=== PATIENT | female | born 1960 | race Caucasian/White ===

== ENCOUNTER 2020-02-25 11:21 | Emergency (ER) | payer OTHER, BC ==
[2020-02-25 11:34] VITALS: BP 144/81; PULSE 85
--- NOTE | 2020-02-25 11:35 | EDM.PDOC ---
ED HPI GENERAL MEDICAL PROBLEM - General Chief Complaint: Upper Extremity Injury/Pain Stated Complaint: right hand laceration Time Seen by Provider: 02/25/20 11:21 Source of Information: Reports: Patient History Limitations: Reports: No Limitations - History of Present Illness INITIAL COMMENTS - FREE TEXT/NARRATIVE: 59 WF presents to ER complaining of right hand laceration after breaking a glass while washing dishes. Pt was sent from [facility] for further evaluation and treatment. Pt denies any functional deficit to hand or fingers. Bleeding is controlled. Laceration is below 5th MCP and approximately 5cm in length. Pt denies any other injury. Pain well controlled. Onset: Today Onset Date: 02/25/20 Location: Reports: Upper Extremity, Right Quality: Reports: Ache Severity: Mild Improves with: Reports: None Worsens with: Reports: None Associated Symptoms: Reports: No Other Symptoms Right Finger-Little Pain Score (Numeric/FACES): 8 - Related Data Allergies Allergy/AdvReac Type Severity Reaction Status Date / Time adhesive Allergy Other Verified 02/25/20 11:22 Home Meds: Home Meds Cyclobenzaprine [Flexeril] 5 mg PO TID PRN 07/30/17 [History] Diclofenac Sodium [Voltaren] 75 mg PO BIDMEALS PRN 07/30/17 [History] Non-Formulary Medication [NF Drug] 1 applic TOP BID PRN 07/30/17 [History] 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: Oncologic (Cancer) History: Reports: Uterine Social & Family History - Caffeine Use Caffeine Use: Reports: Coffee, Soda Review of Systems - Review of Systems Review Of Systems: See Below Constitutional: Reports: No Symptoms Eyes: Reports: No Symptoms Ears: Reports: No Symptoms Nose: Reports: No Symptoms Mouth/Throat: Reports: No Symptoms Respiratory: Reports: No Symptoms Cardiovascular: Reports: No Symptoms GI/Abdominal: Reports: No Symptoms Genitourinary: Reports: No Symptoms Musculoskeletal: Reports: No Symptoms Skin: Reports: Wound (5cm laceration to right hand) Neurological: Reports: No Symptoms Psychiatric: Reports: No Symptoms ED EXAM, GENERAL - Physical Exam Exam: See Below Exam Limited By: No Limitations General Appearance: Alert, WD/WN, No Apparent Distress Eye Exam: Bilateral Eye: PERRL Head: Atraumatic, Normocephalic Neck: Normal Inspection, Supple, Non-Tender, Full Range of Motion Respiratory/Chest: No Respiratory Distress, Lungs Clear, Normal Breath Sounds, No Accessory Muscle Use, Chest Non-Tender Cardiovascular: Normal Peripheral Pulses, Regular Rate, Rhythm, No Edema, No Gallop, No JVD, No Murmur, No Rub GI/Abdominal: Normal Bowel Sounds, Soft, Non-Tender, No Organomegaly, No Distention, No Abnormal Bruit, No Mass Back Exam: Normal Inspection, Full Range of Motion, NT Extremities: Normal Range of Motion, No Pedal Edema, Normal Capillary Refill Neurological: Alert, Oriented, CN II-XII Intact, Normal Cognition, Normal Gait, Normal Reflexes, No Motor/Sensory Deficits Psychiatric: Normal Affect, Normal Mood Skin Exam: Warm, Dry, Normal Color, No Rash, Wound/Incision (5cm laceration to right hand) Lymphatic: No Adenopathy ED TRAUMA EXTREMITY PROCEDURES - Laceration/Wound Repair Right Hand Lac/Wound Length In cm: 5 Appearance: Superficial Distal NVT: Neuro & Vascular Intact Local Anesthesia - Lidocaine (Xylocaine): 1% Plain Local Anesthetic Volume: 5cc Skin Prep: Chlorhexidine (Hibiciens), Saline Exploration/Debridement/Repair: Wound Explored Closed With: Sutures Suture Size: 5-0 # of Sutures: 5 Suture Type: Nylon, Interrupted, Simple Sterile Dressing Applied: Nurse Tetanus Status Addressed: Yes Complications: No Course - Vital Signs Last Recorded V/S: Last Vital Signs Temp 36.2 C 02/25/20 11:23 Pulse 85 02/25/20 11:23 Resp 20 02/25/20 11:23 BP 144/81 H 02/25/20 11:23 Pulse Ox 94 L 02/25/20 11:23 - Orders/Labs/Meds Meds: Medications Discontinued Medications Generic Name Dose Route Start Last Admin Trade Name Juan Diego PRN Reason Stop Dose Admin Lidocaine HCl Confirm 02/25/20 11:31 Xylocaine 1% Administered 02/25/20 11:32 Dose 20 ml .ROUTE .STK-MED ONE Departure - Departure Time of Disposition: 12:16 Disposition: Home, Self-Care 01 Condition: Good Clinical Impression: Laceration of right hand Qualifiers: Encounter type: initial encounter Foreign body presence: without foreign body Qualified Code(s): S61.411A - Laceration without foreign body of right hand, initial encounter - Discharge Information Instructions: Laceration Care, Adult, [id number] Referrals: Jose G Dias, BRANCH SERVICE REPRESENTATIVE [Primary Care Provider] - Forms: ED Department Discharge Additional Instructions: 1. discharge home 2. wound care instructions given 3. keep clean/dry 4. suture removal 7-10 days 5. return to ER for signs of infection- redness, swelling, discharge from wound , worsening pain 48 hours after repair 6. follow up at clinic for further evaluation and treatment as needed Sepsis Event Note - Evaluation Sepsis Screening Result: No Definite Risk - Focused Exam Vital Signs: Vital Signs Temp Pulse Resp BP Pulse Ox 02/25/20 11:23 36.2 C 85 20 144/81 H 94 L Date Exam was Performed: 02/25/20 Time Exam was Performed: 12:16 - Assessment/Plan Assessment:: 1. 5cm laceration to right hand Plan: 1. discharge home 2. wound care instructions given 3. keep clean/dry 4. suture removal 7-10 days 5. return to ER for signs of infection- redness, swelling, discharge from wound , worsening pain 48 hours after repair 6. follow up at clinic for further evaluation and treatment as needed
[2020-02-25] MEDS: Lidocaine 1% 20 ML MDV ONE (12:00)
== END 2020-02-25 12:18 | disposition home or self-care (01) ==
LOC: KA.ED 11:21
DX: S61.411A Laceration without foreign body of right hand, initial encounter (principal); Z91.048 Other nonmedicinal substance allergy status; W25.XXXA Contact with sharp glass, initial encounter; Y93.G1 Activity, food preparation and clean up
CPT/HCPCS: 12002; 99282-25; J2001

== ENCOUNTER 2021-10-27 17:53 | Emergency (ER) | payer OTHER, BC ==
[2021-10-27 18:09] VITALS: BP 150/84; PULSE 89
--- NOTE | 2021-10-27 19:04 | CR ---
[id number] RAD/RAD Forearm Right 2V EXAM: 2 VIEWS RIGHT FOREARM. INDICATION: FALL, HEMATOMA RT FOREARM COMPARISON: None. DISCUSSION: No fracture, dislocation or other osseous abnormality. Soft tissue edema. IMPRESSION: 1. No acute osseous abnormalities. Tk Mendoza DO 10/27/21 0573 Thank you for allowing us to participate in the care of your patient.
--- NOTE | 2021-10-27 19:05 | CR ---
[id number] RAD/RAD Elbow Right 3V Min EXAM: 3 VIEWS RIGHT ELBOW. INDICATION: FALL, EDEMA COMPARISON: None. DISCUSSION: No fracture, dislocation or other acute osseous abnormality. Mild degenerative changes of the right elbow. IMPRESSION: 1. No acute osseous abnormalities. Chronic changes as above. Tk Mendoza DO 10/27/21 [id number] Thank you for allowing us to participate in the care of your patient.
--- NOTE | 2021-10-27 19:56 | EDM.PDOC ---
ED HPI GENERAL MEDICAL PROBLEM - General Chief Complaint: General Stated Complaint: RIGHT ARM INJURY,POSSIBLE LEG Time Seen by Provider: 10/27/21 17:55 Source of Information: Reports: Patient History Limitations: Reports: No Limitations - History of Present Illness INITIAL COMMENTS - FREE TEXT/NARRATIVE: 60-year-old female presents to the emergency room with swelling hematoma over her right elbow and forearm and abrasion to her left lower leg. Patient states yesterday she while helping her unload firewood, she was getting out of the pickup truck and it was part close to their fire pit and she tripped over it in the dark causing abrasion to her left rajan and right elbow. Upon waking up today she noticed swelling over the right elbow and achiness. She denies any drainage. She reports that she has been drinking alcohol today to supplement the discomfort. She now presents to the emergency room with her friend for evaluation. She is alert and oriented there is a strong smell of alcohol in the exam room. She is cooperative. She is nontoxic appearing and appropriate behavior. 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 ED EXAM, GENERAL - Physical Exam Exam: See Below Exam Limited By: No Limitations General Appearance: Alert, WD/WN, No Apparent Distress Nose: Normal Inspection Throat/Mouth: Normal Voice, No Airway Compromise Head: Atraumatic Neck: Normal Inspection Respiratory/Chest: No Respiratory Distress Extremities: Joint Swelling (Right forearm), Arm Pain, Other (Right upper extremity shows large hematoma with an abrasion over the area. There is no drainage. This is tender to touch. No redness. She has full finger wrist forearm and elbow range of motion. She has normal shoulder range of motion. Sh e has no tenderness over the radial head or olecranon. ) Neurological: Alert, Oriented, No Motor/Sensory Deficits Psychiatric: Normal Affect, Normal Mood Skin Exam: Warm, Wound/Incision (Bruising over the left rajan and right elbow), Other (Large hematoma over the right elbow). No: Erythema Course - Vital Signs Last Recorded V/S: Last Vital Signs Temp 97.9 F 10/27/21 18:03 Pulse 89 10/27/21 18:03 Resp 18 10/27/21 18:03 BP 150/84 H 10/27/21 18:03 Pulse Ox 97 10/27/21 18:03 - Radiology Interpretation Free Text/Narrative:: X-rays 3 views right elbow Indication: Fall, edema Comparison: None Discussion: No fracture, dislocation or other acute osseous abnormality. Mild degenerative changes right elbow Impression: No acute osseous abnormality. Chronic changes as above. X-rays 2 views right forearm Indication: Fall, hematoma right forearm Comparison: None Discussion: No fracture, dislocation or other osseous abnormality. Soft tissue edema. - Re-Assessments/Exams Free Text/Narrative Re-Assessment/Exam: 10/27/21 20:02 Discussed x-rays with the patient. No fractures are identified. Triple antibiotic and Telfa gauze including an Russel wrapped at the forearm extending up to the lower arm. I have discussed with the patient she needs to have close observation and watching for signs of infection for the hematoma of the right forearm. We discussed possible need for I&D if this becomes infected. I would recommend continuation of compression and icing and anti-inflammatories as needed. Departure - Departure Time of Disposition: 19:15 Disposition: Home, Self-Care 01 Condition: Good Clinical Impression: Abrasion, left lower leg, initial encounter Traumatic hematoma of right forearm Qualifiers: Encounter type: initial encounter Qualified Code(s): S50.11XA - Contusion of right forearm, initial encounter - Discharge Information Instructions: Elbow Contusion, [id number], Hematoma, [id number] Referrals: Deja Abbasi PUZZLE ASSEMBLER [Primary Care Provider] - Forms: ED Department Discharge Care Plan Goals: 1. Compression with an Russel right forearm and elbow. 2. Patient will need to pay close attention to the swelling and any development of warmth, redness or increased pain to the right elbow. 3. X-rays are negative for fracture of the elbow and forearm. 4. You have a large soft tissue hematoma. Compression, icing and observation are the treatment at this time. We discussed the possibility of this developing into an infection which then would need to be formally I&D. 5. Patient will follow up with her primary care if any of the symptoms or concerns for infection occur. 6. He may take Tylenol or ibuprofen for any pain or discomfort as well as continue with icing. Sepsis Event Note (ED) - Evaluation Sepsis Screening Result: No Definite Risk - Focused Exam Vital Signs: Vital Signs Temp Pulse Resp BP Pulse Ox 10/27/21 18:03 97.9 F 89 18 150/84 H 97 - Assessment/Plan Assessment:: Traumatic hematoma right forearm Left lower leg abrasion Plan: 1. Compression with an Russel right forearm and elbow. 2. Patient will need to pay close attention to the swelling and any development of warmth, redness or increased pain to the right elbow/forearm. 3. X-rays are negative for fracture of the elbow and forearm. 4. You have a large soft tissue hematoma. Compression, icing and observation are the treatment at this time. We discussed the possibility of this developing into an infection which then would need to be formally I&D. 5. Patient will follow up with her primary care if any of the symptoms or concerns for infection occur. 6. He may take Tylenol or ibuprofen for any pain or discomfort as well as continue with icing.
== END 2021-10-27 19:15 | disposition home or self-care (01) ==
LOC: KA.ED 17:53
DX: S50.11XA Contusion of right forearm, initial encounter (principal); S80.812A Abrasion, left lower leg, initial encounter; Z91.048 Other nonmedicinal substance allergy status; Z72.0 Tobacco use; W22.09XA Striking against other stationary object, initial encounter
CPT/HCPCS: 73080-RT; 73090-RT; 99283; 99283-25